=== PATIENT | female | born 1985 | race Hispanic/Latino ===

== ENCOUNTER 2017-10-16 06:58 | Day surgery (SDC) | payer OTHER ==
[2017-10-09 14:51] VITALS: BMI 21.7
[2017-10-16 08:04] VITALS: RESP 18
[2017-10-16] MEDS ORDERED: Bupivacaine HCl 0.5% PF (30 ml) Inj ONE (09:40)
[2017-10-16] MEDS ORDERED: Lactated Ringer's 1,000 ML IV ONE ×2 (09:45→11:27)
[2017-10-16] MEDS ORDERED: Midazolam 2 MG/2 ML VIAL ONE ×2 (09:49→10:06)
[2017-10-16] MEDS ORDERED: Lidocaine 2% Inj (20ml) IJ ONE (10:00)
[2017-10-16] MEDS ORDERED: Propofol 10 mg/ml Inj (20 ML) ONE (10:44)
[2017-10-16] MEDS ORDERED: HYDROmorphone 1 mg/ml ISec IVP PRN (11:33)
[2017-10-16] MEDS ORDERED: HYDROmorphone 1 mg/ml ISec ONE (11:38)
[2017-10-16] MEDS ORDERED: Lactated Ringer's 1,000 ML IV SCH (11:45)
[2017-10-16 13:31] VITALS: PULSE 70
--- NOTE | 2017-10-16 14:35 | RAD ---
Date of service: 10/16/2017 PROCEDURE: Less than 1 hr fluoroscopic time utilized during performance of the procedure. HISTORY: INTERSTIM PLACEMENT STAGE ONE COMPARISON: None TECHNIQUE: Standard protocol for this study/examination. FINDINGS: Total fluoroscopic time (continuous mode) utilized during the procedure 77.8 (seconds). Total exam DLP: 39.71 (mGy). IMPRESSION: Four images submitted.
[2017-10-16 14:50] VITALS: BP 127/75; TEMP 97.9; O2SAT 99
--- NOTE | 2017-10-17 08:49 | OP ---
Copied To: Zen Moreno M.D. Attending MD: Zen Moreno M.D. PROCEDURE DATE: 10/16/2017 PREOPERATIVE DIAGNOSES: Severe urge incontinence, overactive bladder, bladder spasm, pelvic pain. POSTOPERATIVE DIAGNOSES: Severe urge incontinence, overactive bladder, bladder spasm, pelvic pain. SURGEON: Zen Moreno M.D. HOTBED LEVER OPERATOR: Bonilla Gage M.D. INDICATIONS: The patient presented to my office in consultation for intractable overactive bladder with bladder spasm, incontinence, and pain. She has tried all forms of oral antispasmodics including anticholinergics and beta-3 agonists which have failed. Given that she has failed all of these, she is here today for a stage I Interstim trial. PROCEDURE: Stage I Interstim placement and programming. EBL: Minimal. ANESTHESIA: MAC sedation. OPERATIVE DETAILS: The patient was brought to the operating room, placed in the prone position. The patient was sedated. We then found our landmarks using fluoroscopy and placed a guide needle into the S3 foramen in both the right and left sides after anesthetizing the skin and deep tissues with a mixture of 0.5% Marcaine and 2% lidocaine without epinephrine. Once the needles were positioned in the two foramina, a stylet was placed through the needle, and its location was verified using fluoroscopy. The needle was then removed leaving the stylet in place. The dilator was then passed over the stylet again using fluoroscopy for guidance. The leads were then placed in both the right and left S3 foramina with good hockey-stick orientation on the fluoroscope. Once the leads were in good position, they were tested with the stimulator and good raj and toe movement and sensation on both sides. The right side was slightly better than the left. Once we were satisfied with our lead positioning, we made a pocket in the right gluteus skin in the superior lateral quadrant of the buttock again using 0.5% Marcaine and 2% lidocaine for local anesthesia. The pocket was made and then the leads were then tunneled to the pocket. Once they were in the pocket, the extensions were connected. Everything was done sterilely and cleanly. The leads were then re-tunneled to the contralateral side and externalized. The pocket was then irrigated with sterile water. Hemostasis was achieved using electrocautery. Excellent hemostasis was achieved. The pocket was then closed in two layers using 2-0 Vicryl suture, and the skin was closed using 4-0 Monocryl. Once this was completed, we dressed the incision and then secured the extension pieces with the Tegaderm dressing in the usual fashion. At this point, we terminated the case. Of note, the entire case was done using the "no touch technique" using an Ioban dressing on the skin. We never touched the skin throughout the procedure directly. The patient was programmed and had a long discussion with the [employer] rep who gave her his contact information. They will be in touch constantly over the next 10 days. She was given a bladder diary, and she will follow up with us in approximately 10 days for reevaluation for decision regarding proceeding with the stage II or removal of the leads. Zen Moreno M.D.
== END 2017-10-16 14:40 | disposition home or self-care (01) ==
LOC: H.OPSURG 06:58
PROVIDERS: ATTEND Urology
DX: N39.41 Urge incontinence (principal); N32.81 Overactive bladder; N32.89 Other specified disorders of bladder; R10.2 Pelvic and perineal pain
CPT/HCPCS: 64581; C1778; C1787; J0690; J1170; J2250; J2405; J2704; J3010; J7030; J7120

== ENCOUNTER 2017-10-28 06:10 | Day surgery (SDC) | payer OTHER ==
[2017-10-09 14:51] VITALS: BMI 21.7
[2017-10-28] MEDS ORDERED: Lactated Ringer's 1,000 ML IV ONE (06:55)
[2017-10-28] MEDS ORDERED: Bupivacaine HCl 0.5% PF (30 ml) Inj ONE (07:14)
[2017-10-28] MEDS ORDERED: Midazolam 2 MG/2 ML VIAL ONE (07:15)
[2017-10-28] MEDS ORDERED: Propofol 10 mg/ml Inj (20 ML) ONE (07:40)
[2017-10-28] MEDS ORDERED: Lidocaine 1% 5ml Abboject IV ONE (07:41)
[2017-10-28] MEDS ORDERED: Lidocaine 2% Jelly (5 ml) TOP ONE (07:44)
[2017-10-28] MEDS ORDERED: Lidocaine 2% Inj (20ml) IJ ONE ×2 (08:10)
[2017-10-28] MEDS: HYDROmorphone 1 mg/ml ISec IVP PRN ×4 (08:55→10:20)
[2017-10-28] MEDS ORDERED: Lactated Ringer's 1,000 ML IV SCH (09:00)
[2017-10-28 12:16] VITALS: RESP 18
[2017-10-28] MEDS ORDERED: Trimethobenzamide 200 mg/2 mL Inj IM ONE ×2 (12:39)
[2017-10-28 13:14] VITALS: BP 114/67; PULSE 62; TEMP 97.4; O2SAT 100
--- NOTE | 2017-10-28 20:15 | OP ---
Copied To: Zen Moreno M.D. Attending MD: Zen Moreno M.D. PROCEDURE DATE: 10/28/2017 Natalia is a 32-year-old female who is here for stage II InterStim following a successful stage I test phase. After approximately 10 days of test phase following stage I InterStim, Natalia is doing very well. Her incontinence has resolved. Her pain has almost all resolved and she feels confident that she would like to proceed with stage II, and this has been verified by voiding dairy and shared with [employer] rep who confirms my assessment. PREOPERATIVE DIAGNOSES: Severe urge incontinence, pelvic pain. POSTOPERATIVE DIAGNOSES: Severe urge incontinence, pelvic pain. PROCEDURE: Stage II Interstim implant. ESTIMATED BLOOD LOSS: Minimal. ANESTHESIA: Sedation with local. DESCRIPTION OF PROCEDURE: The patient was brought to the operating room, placed in the prone position. Sedation was administered. The patient was prepped and draped in the usual sterile fashion including the pre-scrub with Chlorhexidine solution. A time out was called, verifying patient name, procedure, antibiotics, and allergies, and local anesthesia was infiltrated into the previously made pocket on the right gluteus region. Careful attention was paid to make a very superficial incision over the skin in this area and the pocket was dissected down. Feel of gush of fluid was identified, verifying that we were in the pocket. We then withdrew the extensions on the leads. Using the [employer] provided screw flatbed truck driver, I was able to separate the extension, which was brought out sterilely from the escobedo. The lead on the left was buried and the lead on the right was connected to the [employer] battery pack in the usual fashion after having cleaned the lead with sterile water and drying it. The battery pack was then placed within the pocket. Impendence was checked by the [employer] rep. The device appeared to be functioning correctly. At this point, the battery pack was placed within the antibiotic impregnated mesh pouch, which was then buried using 2-0 Vicryl suture to close the deep pocket and then 4-0 Monocryl to close the skin. Dermabond and Steri-Strips were placed on the wound. The patient tolerated the procedure very well and transferred to the recovery room in good, stable condition. The patient will follow up with me in the office. Zen Galina Moreno [facility] # [id number]
== END 2017-10-28 13:40 | disposition home or self-care (01) ==
LOC: H.OPSURG 06:10
PROVIDERS: ATTEND Urology
DX: N39.41 Urge incontinence (principal); R10.2 Pelvic and perineal pain
CPT/HCPCS: 64590; C1767; C1787; J0690; J1170; J2250; J2704; J3010; J7030; J7120

== ENCOUNTER 2018-07-15 06:25 | Day surgery (SDC) | payer OTHER ==
[2018-07-15] MEDS ORDERED: Propofol 10 mg/ml Inj (20 ML) ONE ×3 (07:14→08:41)
[2018-07-15] MEDS ORDERED: Midazolam 2 MG/2 ML VIAL ONE ×4 (07:15→09:25)
[2018-07-15] MEDS ORDERED: Ketamine 50 mg/ml Inj (10 ml) ONE (07:16)
[2018-07-15] MEDS ORDERED: Lactated Ringer's 1,000 ML IV ONE (07:20)
[2018-07-15] MEDS ORDERED: Lidocaine 2% Inj (20ml) ONE (07:26)
[2018-07-15] MEDS ORDERED: Bupivacaine 0.5% Inj(30mL) ONE (07:26)
[2018-07-15 07:35] VITALS: BMI 20.3
[2018-07-15] MEDS ORDERED: Dexamethasone 4 mg/1 ml IVP PRN (10:26)
[2018-07-15] MEDS: HYDROmorphone 0.5 mg/0.5 ml ISec IVP PRN ×3 (10:30→11:25)
[2018-07-15] MEDS ORDERED: Lactated Ringer's 1,000 ML IV SCH (10:30)
[2018-07-15 14:07] VITALS: BP 122/73; PULSE 63; RESP 18; TEMP 97.8; O2SAT 100
--- NOTE | 2018-07-16 11:33 | RAD ---
Date of service: 07/15/2018 PROCEDURE: Fluoroscopic assistance in excess of 1 hour. HISTORY: INTERSTIM REMOVAL AND PLACEMENT COMPARISON: None TECHNIQUE: Standard protocol for this study/examination. FINDINGS: Total fluoroscopic time (continuous mode) utilized during the procedure 101.8 seconds. Total exam DLP: 29.38 (mGy). IMPRESSION: Greater than 1 hour for fluoroscopy time employed for the procedure/ examination
--- NOTE | 2018-07-16 16:25 | OP ---
PROCEDURE DATE: 07/15/2018 INDICATIONS: Ms. Eagle is a 32-year-old woman with intractable urinary incontinence and pelvic pain, previously I have placed a stimulator in her right S3 foramina with excellent results and resolution of her incontinence. Unfortunately, she had a surgical procedure after the stimulator was placed and it appears that the stimulator was malfunctioning as impedances were very high likely as a result of a shock caused by electrocautery, passing the electrical current through the device. As a result of this malfunction, her incontinence has resumed and she was getting shooting pain down her leg. Therefore, she was brought in today for removal of the malfunctioning device and placement of new devices. PREOPERATIVE DIAGNOSES: Malfunctioning stimulator, urinary incontinence, pelvic pain. POSTOPERATIVE DIAGNOSES: Malfunctioning stimulator, urinary incontinence, pelvic pain. PROCEDURES: 1. Removal and replacement of bilateral leads. 2. Removal and replacement of left sacral neuromodulator device. 3. Removal and replacement of right stimulator device. 4. Placement of left stimulator device. ESTIMATED BLOOD LOSS: Minimal. This is a clean case. SURGEON: Zen Moreno MD SHIPWRIGHT APPRENTICE: Bonilla Gage MD OPERATIVE DETAILS: The patient brought to the operating room, placed in the prone position. Sedation was administered. The patient was prepped and draped including a 10-minute pre-wash with chlorhexidine scrub. Skin was prepped with an alcohol-based solution. Timeout was called verifying the patient name, procedure, antibiotics, and allergies. The patient was prepped and draped in the usual sterile fashion including an Ioban drape. The C-arm was brought in and fluoroscopy was performed to identify the proximal location of the leads. A stab incision was made over the leads. The leads were fished out sequentially right and left. The right lead was identified. The pocket over the right stimulator was opened. The plug in on the lead moved to stimulator confirming that this is the direct lead. The lead was disconnected from the battery. The battery was sent off from the surgical field, marked as pelvic floor stimulator malfunction. The lead was then delivered back into the stab incision and extracted from the patient. We then checked stimulation on the left lead by connecting external device. The impedances and voltages were very high consistent with again malfunction of the lead. This was also extracted from the patient. At this point, we placed a tined lead in a percutaneous fashion and in the usual fashion in the exit foramina bilaterally. These were tested with an external defibrillator in this low voltage where impedances were in excellent fixation. She was satisfied with the leads were placed properly in the exit foramina with good flare approximating the exiting nerve roots. At this point, we tunneled rightly back to the previously made pockets and a new sacral neuromodulator device was connected in the usual fashion to the leads. The pocket was closed using two layers of 2-0 Vicryl suture and the skin was closed using 4-0 Monocryl. We then made a new pocket on the left upper gluteus and the left lead was tunneled in that direction. Battery was connected in the usual fashion. The pocket was closed in two layers using 2-0 Vicryl suture and skin was closed using 4-0 Monocryl. At this point, we introduced the impedance checker product design and the diagnostics were run on both of these devices and diagnostics were passed on both with low impedances and low voltages. At this point, we applied Dermabond and Steri-Strips to the bilateral wounds, taken the patient from anesthesia and transferred to recovery room in good, stable condition. The patient will go home with . Zen Moreno M.D.
== END 2018-07-15 14:40 | disposition home or self-care (01) ==
LOC: H.OPSURG 06:25
PROVIDERS: ATTEND Urology
DX: T83.89XA Other specified complication of genitourinary prosthetic devices, implants and grafts, initial encounter (principal); N39.41 Urge incontinence; R10.2 Pelvic and perineal pain
CPT/HCPCS: 64561; 64590; 88300; 88304; C1767; C1778; C1787; J0131; J0690; J1170; J2001; J2250; J2704; J3010; J7120